=== PATIENT | female | born 1925 | race Caucasian/White ===

== ENCOUNTER 2017-01-06 10:44 | Inpatient (IN) | payer MEDICARE, OTHER ==
[~2017-01-06] VITALS: Ht 162.6 cm; Wt 68.7 kg
[2017-01-06 12:01] VITALS: BP 152/89; PULSE 69; RESP 16; O2SAT 98
[2017-01-06 12:51] VITALS: PULSE 75
[2017-01-06] MEDS ORDERED: Ondansetron 2 mg/mL 2 mL Inj IVPUSH PRN (13:00)
[2017-01-06] MEDS ORDERED: Atropine 1 mg/10 mL (Code) Syringe IVPUSH PRN (13:00)
[2017-01-06] MEDS ORDERED: Senna-Docusate 8.6-50 mg Tablet PO PRN (13:00)
[2017-01-06] MEDS ORDERED: Polyethylene Glycol (PEG) 17 Gm Powder PO PRN (13:00)
[2017-01-06] MEDS ORDERED: Alum-Mag Hydrox-Simeth 30 mL Suspension PO PRN (13:00)
--- NOTE | 2017-01-06 13:20 | NUR ---
No allergy per patient. Addendum: 01/06/17 at 1321 by NADINE ASH RN Amended: Links added.
[2017-01-06] MEDS ORDERED: WARF2.5T82 PO (13:33)
[2017-01-06] MEDS ORDERED: DORZ10DR18 LEFT_EAR (13:33)
[2017-01-06] MEDS ORDERED: OFLO5DRO5 RIGHT_EYE (13:33)
[2017-01-06] MEDS ORDERED: SIMV20TA4 PO (13:33)
[2017-01-06] MEDS ORDERED: LATA2.5D6 LEFT_EYE (13:33)
[2017-01-06] MEDS ORDERED: BRIM5DRO10 LEFT_EYE (13:33)
[2017-01-06] MEDS ORDERED: ATEN25TA PO (13:33)
[2017-01-06] MEDS: 0.9% Sodium Chloride 1,000 ML IV SCH (14:22)
[2017-01-06] MEDS: Dorzolamide 2% 10 mL Ophthalmic Solution LEFT_EYE SCH ×2 (14:30→21:11)
[2017-01-06] MEDS: BRIMONIDINE 0.15% LEFT_EYE SCH ×2 (14:30→21:11)
--- NOTE | 2017-01-06 15:09 | HP ---
[address] [address] HISTORY AND PHYSICAL PATIENT: PANCHO KEANE : 1925 MR#: [id number] ADMIT: 01/06/2017 JOB ID: [id number] PRIMARY CARE PROVIDER: Dr. Ro, [place]. Patient is direct admission from [facility], inpatient status, Blue Team. CHIEF COMPLAINT: Chest pain. HISTORY OF PRESENT ILLNESS: This is an 89-year-old female with no known cardiac disease but a history of a carotid endarterectomy and hypertension, who woke up 3:00 in the morning due to substernal chest pain which was pressure like, nonradiating. She has never had this before. Had been feeling fine otherwise. There was no nausea, vomiting, diaphoresis, shortness of breath or lightheadedness. The pain was substernal, pressure-like and not particularly radiating. She laid in bed 15 minutes with this. It did not get better. She went downstairs, called 911. Paramedics came, I think put her on some O2, but she said did not give her any meds, and by the time she got to the ER, which was pretty quickly, pain was gone. In the ER, troponin was 0.74. It has come down to 0.44. INR 2.8. Chest x-ray showed cardiomegaly but no failure. Mild anemia and unremarkable BMP. Her EKG showed some PVCs, PACs but no overt ischemic changes. Patient is chest pain free at this point in time. REVIEW OF SYSTEMS: A complete review of systems completed and performed with patient, all pertinent positives in HPI as above, rest review of systems negative. PAST MEDICAL HISTORY: 1. CVA six years ago. 2. Hypertension. 3. for cataracts. 4. Carotid endarterectomy on the right. 5. Glaucoma and eye surgery on with a stent on the right eye. MEDICATIONS: 1. Warfarin 2.5 mg in the morning, the patient says she takes this to prevent strokes per her doctor, but there is no known history of AFib. 2. Atenolol 25 daily. 3. Simvastatin 20 at bedtime. 4. Brimonidine 0.15% one drop left eye t.i.d. 5. Difluprednate 2% one drop right eye t.i.d. 6. Latanoprost one drop left eye daily. 7. Ofloxacin 0.03% one drop right eye q.i.d. 8. Dorzolamide 2% one drop t.i.d. left eye. ALLERGIES: None. SOCIAL HISTORY: Patient lives alone in her own home. She quit smoking at age 30 and has two alcohol beverages every night. FAMILY HISTORY: Father at 90 suddenly and mother had a stroke at 85 and at 90. No other cardiovascular disease evident. PHYSICAL EXAMINATION: Afebrile, heart rate 70, respiratory rate 16, blood pressure 150/89. O2 sats 98% on room air. Patient is alert, cooperative, not in any distress. She is chest pain free. Skin is warm and dry. Eyes: PERRLA. EOM intact. Mouth shows adequate hydration, no lesions. Neck supple. No JVD. Thyroid grossly normal. Her cardiac exam is regular. Possible soft systolic murmur. Lungs are clear anteriorly and posteriorly. Abdomen is soft, nonacute, benign. Extremities showed no significant edema. Cranial nerves 2-12 are intact. No gross motor or sensory defects noted. DIAGNOSES: 1. Cal-PU-mzqtvcina myocardial infarction, present on admission. Active. I have talked to Dr. King, who had also spoken with the Emergency Department physician at [facility]. At this time, as patient has a therapeutic international normalized ratio, he does not want heparin but we could consider that if her international normalized ratio drifts to less than 2. He will see her in consultation. He asked me initiate aspirin and Plavix. We will substitute metoprolol for patient's atenolol and continue her nighttime simvastatin. Echocardiogram ordered and possible catheterization. 2. Warfarin usage present on admission, active. Will monitor the pro-time on a daily basis. Will hold warfarin at this time, nothing an international normalized ratio of 2.8. Would try to establish a better reason for warfarin therapy. 3. Hypertension present on admission. Stable. Will continue patient's atenolol. 4. Glaucoma with recent surgery, right eye, present on admission. Active. Will continue with patient's five eye drops. She has them here in the hospital and she can use her own if we do not have them currently in our pharmacy. CODE STATUS: Patient requests DNR, DNI status.
[2017-01-06] MEDS ORDERED: DIFL5DRO RIGHT_EYE (15:11)
[2017-01-06 15:15] LABS: Magnesium 1.5 mg/dL (1.6-2.6)
--- NOTE | 2017-01-06 16:19 | DRSVH ---
Merged With [facility] [address] [place] [address] Echocardiogram Report Name: PANCHO KEANE LStudy Date: 01/06/2017 Height: 64 in Hospital Exam Location: [facility] Weight: 150 lb Gender: Female BSA: 1.7 m2 : 1925 Age: 89 yrs BP: 152/89 mmHg Reason For Study: Chest pain Ordering Physician: Performed By: Amanda LoeraMcPherson HospitalIST [facility] Interpretation Summary The left ventricle is normal in size. Left ventricular systolic function is moderately reduced. The ejection fraction is estimated to be 40-45%. There is a large sized apical, septal, anteroseptal, and anterior wall motion abnormality with hypokinesis to akinesis of the segments. The right ventricle is normal in size and function. The right ventricular systolic pressure is estimated at 45 mmHg assuming a right atrial pressure of 3 mm Hg. The left atrium grossly appears normal in size. Right atrial size is normal. The aortic valve is moderately calcified. There is no hemodynamically significant valvular aortic stenosis. There is no other significant valvular heart disease. The ascending aorta is mildly enlarged. Mildly dilated abdominal aorta. There is a small pericardial effusion noted. There are no echocardiographic indications of cardiac tamponade. Procedure: A two-dimensional transthoracic echocardiogram with color flow and Doppler was performed. The study quality was technically adequate. There is no prior echocardiogram noted for this patient. The heart rate ranged between 71-79 bpm during the study. Left Ventricle: The left ventricle is normal in size. There is normal left ventricular wall thickness. Left ventricular systolic function is moderately reduced. The ejection fraction is estimated to be 40-45%. There is a large sized apical, septal, anteroseptal, and anterior wall motion abnormality with hypokinesis to akinesis of the segments. Spectral Doppler of the mitral valve is reversed, with an E/A wave ratio < 1.0. Right Ventricle: The right ventricle is normal in size and function. Atria: The left atrium grossly appears normal in size. Right atrial size is normal. The interatrial septum is intact with no evidence for an atrial septal defect. Mitral Valve: The mitral valve leaflets are mildly calcified. The mitral valve leaflets appear moderately thickened, but open well. There is mild mitral regurgitation. Aortic Valve: The aortic valve is not well visualized. There is mild aortic valve sclerosis. The aortic valve is moderately calcified. Leaflet mobility is moderately reduced. There is no hemodynamically significant valvular aortic stenosis. Tricuspid Valve: The tricuspid valve leaflets are thin and pliable. There is mild tricuspid regurgitation. The right ventricular systolic pressure is estimated at 45 mmHg assuming a right atrial pressure of 3 mm Hg. Pulmonic Valve: The pulmonic valve is not well visualized. There is trace pulmonic regurgitation. There is no other significant valvular heart disease. Great Vessels: The aortic root is normal size. The ascending aorta is mildly enlarged. The aortic arch is normal in size. Mildly dilated abdominal aorta. The IVC is of normal diameter and collapses greater than 50% with a sniff. This suggests a low right atrial pressure of 3 mm Hg. Pericardium/ Pleura There is a small pericardial effusion noted. There are no echocardiographic indications of cardiac tamponade. There is no pleural effusion. I WMSI = 1.94 % Normal = 44 There is a la rge sized apical, septal, anteroseptal, and anterior wall motion abnormality w ith hypokinesis to akinesis of t he segments. Segments Size X - Cannot 1 - Normal 2 - 3 - Akinetic 4 - 1-2 small Interpret Hypokinetic Dyskinetic 3-5 moder ate 5 - 6-14 large Aneurysmal 15-16 diffu se MMode/2D Measurements & Calculations LVIDd: 5.5 cm LA dimension: 3.9 cm RA long axis Ao root diam LVIDs: 4.8 cm IVC diam: 1.9 cm FS: 11.8 % RA area Aortic Jxn: 2.8 cm IVSd: 1.1 cm : 15.1 cm asc Aorta Diam LVPWd: 0.82 cm RA vol : 43.1 ml Ao Arch Diam (Prox RA Trans): 2.8 cm : 24.9 mm/ RVDd major : 5.7 cm LV rojo. diameter/BSA LV sys. diameter/BSA RVD1 (basal) RVD2 (mid): 3.3 cm (cm/m^2): 3.2 (cm/m^2): 2.8 Doppler Measurements & Calculations Ao V2 max MV E max efra MV E/A: 0.89 TR max efra : 147.4 cm/sec : 81.0 cm/sec MV A dur : 324.8 cm/sec Ao max P.7 mmHgMV A max efra : 0.12 sec TR max PG Ao mean PG : 91.2 cm/sec : 42.2 mmHg MV P1/2t: 65.9 msec PA V2 max LVOT Max Efra : 95.3 cm/sec : 85.1 cm/sec PA mean PG sev ratio: 0.61 PA Accel Time : 0.11 sec MV dec time MV P1/2t max efra Ao V2 mean LV V1 max PG : 0.20 sec : 92.7 cm/sec Ao V2 VTI LV V1 VTI: 18.4 cm MVA(P1/2t): 3.3 cm2 : 30.2 cm PA V2 mean : 56.7 cm/sec Reading Physician:PURNIMA
[2017-01-06] MEDS: Sodium Chloride LOK Flush 10 mL Syringe IVFLUSH SCH (16:30)
[2017-01-06 16:54] VITALS: BP 115/74; PULSE 71; RESP 18; O2SAT 97
--- NOTE | 2017-01-06 18:18 | NUR ---
Admission Patient directly admitted to the floor at 1200 from [facility]. Admission questions and med req accomplished by admit nurse. Patient had a 0/10 pain. Vitals - t-36.8, bp-152/89, p-69, rr-18, o2-98 RA. Oriented patient to the room. Placed bed in lowest position and call light within reach.
--- NOTE | 2017-01-06 18:36 | NUR ---
[facility] signed
[2017-01-06] MEDS ORDERED: Phytonadione (Vitamin K) per Pharmacy XX ONE (19:45)
[2017-01-06 20:00] VITALS: PULSE 77
[2017-01-06] MEDS ORDERED: Phytonadione (Adult) 10 mg/1 mL Inj PO ONE (20:30)
--- NOTE | 2017-01-06 20:30 | PCM.CHPCAR ---
Consult Subjective Date of service Jan 06, 2017 Date of admit Jan 06, 2017 at 11:56 Provider Requesting Consult Requesting Provider: Ed Johnston MD Primary Care Physician Primary Care Provider: Cece Ro MD Chief Complaint Chest pain History of Present Illness This is a very pleasant and very active 89-year-old female. She has no prior cardiac history but does have vascular disease which involves the carotid endarterectomy on the right side after she suffered a CVA. She was placed on warfarin at that point of time. The patient has done very well. She has been quite active. She lives by herself in [facility]. She exercises on a regular basis which involves water aerobics and walking. She denies any symptoms during these activities. However earlier this morning around 5:00 the patient has sudden onset of chest pain that started very classic for angina. It was retrosternal and pressure-like sensation without radiation. She also had mild tachycardia. The patient waited for about 10-15 minutes but the sensation did not resolve spontaneously. She went upstairs and put her clothes on and open the door and called 911. The patient was taken to [facility] emergency room. Her first EKG was unremarkable. Her first troponin was negative. She was eventually chest pain-free at this point. She was going to be admitted to the hospitalist service but her second troponin came back positive. The patient was transferred to [facility] for considering cardiac catheterization. The patient has been hemodynamically and symptomatically stable. Her INR was above 2. The patient recently had glaucoma surgery just 2 days ago. She was on warfarin during the procedure. The patient had an echocardiogram that shows significant LV wall motion abnormalities along the LAD distribution. There is significant hypokinesis to akinesis. She had no evidence of significant valvular heart disease. Her ejection fraction was estimated around 40-45%. Otherwise she has done very well and has no other complaints. Review of Systems Review of Systems The rest of the 12 point review symptoms is otherwise negative apart what was mentioned in the history of present illness. PMH Past Medical History 1. CVA six years ago. 2. Hypertension. 3. for cataracts. 4. Carotid endarterectomy on the right. 5. Glaucoma and eye surgery on with a stent on the right eye. Scheduled Atenolol (Atenolol) 25 Mg Tablet 25 MG PO DAILY (Reported) Brimonidine Tartrate (Alphagan P) 5 Ml Drops 1 DROP LEFT_EYE TID (Reported) Difluprednate (Durezol) 5 Ml Drops 1 DROP RIGHT_EYE QID (Reported) Dorzolamide (Dorzolamide) 10 Ml Drops 1 DROP LEFT_EAR TID (Reported) Latanoprost (Latanoprost) 2.5 Ml Drops 1 DROP LEFT_EYE HS (Reported) Ofloxacin (Ofloxacin) 5 Ml Drops 1 DROP RIGHT_EYE QID (Reported) Simvastatin (Simvastatin) 20 Mg Tablet 20 MG PO HS (Reported) Warfarin Sodium (Warfarin Sodium) 2.5 Mg Tablet 2.5 MG PO DAILYWD (Reported) Current Inpatient Medications Home medications 1. Warfarin 2.5 mg in the morning, the patient says she takes this to prevent strokes per her doctor, but there is no known history of AFib. 2. Atenolol 25 daily. 3. Simvastatin 20 at bedtime. 4. Brimonidine 0.15% one drop left eye t.i.d. 5. Difluprednate 2% one drop right eye t.i.d. 6. Latanoprost one drop left eye daily. 7. Ofloxacin 0.03% one drop right eye q.i.d. 8. Dorzolamide 2% one drop t.i.d. left eye. Allergies: Coded Allergies: No Known Allergies (Unverified , 01/06/17) Family History Family History Father at 90 suddenly and mother had a stroke at 85 and at 90. No other cardiovascular disease evident Social History Hx Alcohol Use: YesAlcoholic Drinks Per Day: 3 ouces per dayHx Substance Use: No Living Arrangement: Alone Exam Vital Signs Vital Sign - Last Date Time Temp Pulse Resp B/P Pulse Ox O2 Delivery O2 Flow Rate FiO2 01/06/17 16:54 36.8 71 18 115/74 97 Room Air Objective GENERAL: This is a well-nourished, well-developed patient, in no apparent distress. HEAD: Atraumatic. Normocephalic. No temporal or scalp tenderness. EYES: Pupils equal round and reactive. Extraocular motions intact. No scleral icterus. No injection or drainage. ENT: Nose without bleeding, purulent drainage or septal hematoma. Throat without erythema, tonsillar hypertrophy or exudate. Uvula midline. Airway patent. NECK: Trachea midline. No JVD or lymphadenopathy. Supple, nontender, no meningeal signs. CARDIOVASCULAR: Regular rate and rhythm without murmurs, gallops, or rubs. RESPIRATORY: Clear to auscultation. Breath sounds equal bilaterally. No wheezes , rales, or rhonchi. GASTROINTESTINAL: Abdomen soft, non-tender, nondistended. No hepato-splenomegaly , or palpable masses. No guarding. EXTREMITIES: No clubbing, cyanosis, or edema. No joint tenderness, effusion, or edema noted. No calf tenderness. Negative Homans sign bilaterally. BACK: Nontender without deformity or crepitance. No flank tenderness. Lab and Diagnostics Additional Diagnostics: Echocardiogram Report Name: PANCHO KEANE LStudy Date: 01/06/2017 Height: 64 in Hospital Exam Location: [facility] Weight: 150 lb Gender: Female BSA: 1.7 m2 : 1925 Age: 89 yrs BP: 152/89 mmHg Reason For Study: Chest pain Ordering Physician: Performed By: Amanda Lo[facility]Jeff[facility] Center[facility] Interpretation Summary The left ventricle is normal in size. Left ventricular systolic function is moderately reduced. The ejection fraction is estimated to be 40-45%. There is a large sized apical, septal, anteroseptal, and anterior wall motion abnormality with hypokinesis to akinesis of the segments. The right ventricle is normal in size and function. The right ventricular systolic pressure is estimated at 45 mmHg assuming a right atrial pressure of 3 mm Hg. The left atrium grossly appears normal in size. Right atrial size is normal. The aortic valve is moderately calcified. There is no hemodynamically significant valvular aortic stenosis. There is no other significant valvular heart disease. The ascending aorta is mildly enlarged. Mildly dilated abdominal aorta. There is a small pericardial effusion noted. There are no echocardiographic indications of cardiac tamponade. Assessment & Plan Problems: (1) Non-ST elevation myocardial infarction (NSTEMI) Plan: Patient presents with non-ST elevation myocardial infarction. Acrochordon show significant LV wall motion abnormalities consistent with acute ischemia given the context of her history. The patient will be loaded on Plavix 300 mg 1 and for now she will start on aspirin. Her warfarin will be reversed with oral vitamin K for preparation of heart catheterization. If her INR drops below 2 then we will start intravenous heparin. She will be Nothing by mouth past midnight in preparation for the procedure. The patient has been started on beta blockers and atorvastatin as well. Currently she is stable. The patient was explained about the risk and the benefits of the cardiac catheterization and wishes to proceed. Status: Acute ICD Code: I21.4 (2) Warfarin anticoagulation Plan: I do not know why she is taking warfarin. She has no prior hx of afib as far as we can tell. I think we can discontinue this and put her on aspirin and Plavix if she does proceed with coronary stenting. Dual antiplatelet therapy should be suffice and secondary prevention of CVA. Status: Chronic ICD Code: Z79.01 (3) S/P carotid endarterectomy Status: Chronic ICD Code: Z98.89 (4) Hypertension Qualifiers: Hypertension type: essential hypertension Hypertension goal: less than 130 /80 Qualified Code: I10 - Essential (primary) hypertension Plan: Blood pressure appears to be pretty well-controlled since admission. Continue with current medical therapy. Status: Chronic ICD Code: I10 (5) H/O polymyalgia rheumatica Status: Chronic ICD Code: Z87.39 Cardiology Plan: Catherization Pain Evaluation: Adequate Pain Control VTE Mechanical Devices: Intermittant Pneumatic CD Resuscitation Status: DNR/DNI:Do Not Resuscitate/Intubate Time spent 80 minutes Phillip King MD Jan 06, 2017 20:30
[2017-01-06 20:46] VITALS: BP 158/94; PULSE 83; RESP 18; O2SAT 98
[2017-01-06] MEDS: DUREZOL OPTH RIGHT_EYE SCH (21:09)
[2017-01-07] VITALS (25 sets, daily range): BP systolic 99–147; BP diastolic 54–88; PULSE 58–82; RESP 15–19; O2SAT 95–99
[2017-01-07] MEDS: Sodium Chloride LOK Flush 10 mL Syringe IVFLUSH SCH ×8 (00:30→19:47)
[2017-01-07] MEDS ORDERED: Magnesium Sulfate 50% Inj 1 GM in Dextrose 5% 50 ML IV ONE (02:00)
[2017-01-07] MEDS: 0.9% Sodium Chloride 1,000 ML IV SCH ×2 (02:15→17:20)
--- NOTE | 2017-01-07 05:28 | NUR ---
Teaching/NOC shift Controls Technician received the patient at 1900hrs, she was lying quietly in bed only complaining of mild pain in the RT eye, she had surgery in that eye with a stent place on . Assessment done and teaching re: possible heart cath done. Patient admits to being very tired and just wants to sleep, writer editor explained need for 2nd IV site and cath pre-op but she request to do it in the AM. PT left to rest until HS meds given, after that she slept soundly all night, no complaint of chest pain or SOB on rounds tonight.
[2017-01-07 05:55] LABS: Mean Corpuscular Volume 88.4 fL (81-100)
[2017-01-07 05:58] LABS: BASOPHILS % (AUTO) 0.5 % (0-3); EOSINOPHILS % (AUTO) 5.5 % (0-5); Mean Corpuscular Hemoglobin 27.8 pg (27.0-35.0); NEUTROPHILS % (AUTO) 70.1 % (40-74); Platelet Count 153 bil/L (150-400)
[2017-01-07] MEDS ORDERED: diphenhydrAMINE 25 mg Capsule PO ONE (06:00)
[2017-01-07] MEDS ORDERED: 0.9% Sodium Chloride 1,000 ML IV ONE (06:00)
[2017-01-07 06:14] LABS: INR 1.37 ratio
[2017-01-07 06:17] LABS: Magnesium 1.8 mg/dL (1.6-2.6)
[2017-01-07] MEDS ORDERED: Heparin 5,000 Unit/mL Inj IVPUSH PRN (08:15)
[2017-01-07] MEDS ORDERED: Heparin 25K Unit/500mL 0.45 NS 25,000 UNIT in IV Premix 1 EACH IV SCH (08:15)
[2017-01-07] MEDS: DUREZOL OPTH RIGHT_EYE SCH ×4 (08:42→19:47)
[2017-01-07] MEDS: Dorzolamide 2% 10 mL Ophthalmic Solution LEFT_EYE SCH ×3 (08:43→19:46)
[2017-01-07] MEDS: BRIMONIDINE 0.15% LEFT_EYE SCH ×3 (08:45→19:46)
[2017-01-07] MEDS ORDERED: 0.9% Sodium Chloride 1,000 ML ONE (09:03)
[2017-01-07] MEDS ORDERED: Heparin 1,000 Units/500 mL NS Premix IV ONE (09:03)
[2017-01-07] MEDS ORDERED: Heparin 5,000 Units/500 mL NS Premix IV ONE ×2 (09:03→10:37)
--- NOTE | 2017-01-07 09:20 | NUR ---
Off the unit Pt taken off the unit to curb and gutter laborer, unable to establish 2nd IV. Pt given 0.5 mg IV Ativan and 25 mg PO Diphendydramine prior to leaving. Undergarments have been removed. No complains of pain, chest discomfrt/pressure. Per henrik Walker to hold Heparin gtt at this time. Report called to Nayeli.
[2017-01-07] MEDS ORDERED: Nitroglycerin 50,000 mcg/250 mL D5W Premix IV ONE (09:23)
[2017-01-07] MEDS ORDERED: Heparin 1,000 Unit/mL 10 mL Inj ONE (09:23)
[2017-01-07] MEDS ORDERED: fentaNYL-PF 50 mCg/mL 2 mL Inj ONE (09:46)
[2017-01-07 09:57] LABS: Unsaturated Iron Binding 344.1 ug/dL
[2017-01-07] MEDS ORDERED: 0.9% Sodium Chloride 1,000 ML IV SCH (11:43)
[2017-01-07] MEDS ORDERED: HYDROcodone-APAP 5-325 mg Tablet PO PRN (11:45)
[2017-01-07] MEDS ORDERED: Atropine 1 mg/10 mL (Code) Syringe IVPUSH PRN (11:45)
[2017-01-07] MEDS ORDERED: Ondansetron 2 mg/mL 2 mL Inj IVPUSH PRN (11:45)
--- NOTE | 2017-01-07 11:53 | PCM.PNCARD ---
Subjective Date of service Jan 07, 2017 Chief Complaint Chest pain History of Present Illness Patient had her heart chatheterization today and that showed a 99% proximal LAD stenosis. She proceeded with drug eluting stent and subsequent angiographic results were excellent. The rest of her coronaries showed no evidence of significant CAD. She has been transferred to [facility] in stable condition. Constitutional: Denies: Chills, Fever ENT: Denies: Ear Discharge, Ear Pain Eyes: Resports: Conjunctive Inflammation, Denies: Blurred Vision Cardiovascular: Denies: Chest Pain, Edema, Irregular Heart Rate Respiratory: Denies: Cough, Cough with bloody sputum Gastrointestinal: Denies: Abdominal Pain, Blood in stool (red) Genitourinary: Denies: No burning or pain with urination Musculoskeletal: Denies: Ankle Pain, Back Pain Skin: Denies: Blisters, Bruising Neurological: Denies: Confusion, Dizziness Endocrine: Reports: Blood Glucose Review Exam Vital Signs Vital Sign - Last Date Time Temp Pulse Resp B/P Pulse Ox O2 Delivery O2 Flow Rate FiO2 01/07/17 10:43 67 01/07/17 08:30 Supplement Oxygen 01/07/17 05:20 36.6 16 141/88 98 Intake and Output 01/06/17 01/06/17 01/07/17 Cumulative From/Thru 15:00 23:00 07:00 01/06/17 12:00 - 01/07/17 07:00 Intake Total 1420 ml 1420 ml Output Total 650 ml 650 ml Balance 770 ml 770 ml Intake Oral 200 ml 200 ml IV Total 1220 ml 1220 ml Output Urine Total 650 ml 650 ml # Bowel Movements 0 0 General: Pleasant Cooperative Skin: Warm & dry to touch Head: Normocephalic Eye: EOMS intact No arcus or xanthelasma Ears, Nose & Throat: Ears no gross abnormalities Nose no gross abnormalities Chest: Clear auscultation w/o rales/wheeze Cardiac: Normal non-displaced apical impulse Pulses: Pulses full/equal all extremities Abdomen: Soft, non-distended, non-tender Extremities: Warm w/o deformities,erythema noted Neurological: Alert & oriented Psychological: Affect & interaction appropriate Lab and Diagnostics Result Diagram: 01/07/1753901/07/17539 Assessment & Plan Problems: (1) Non-ST elevation myocardial infarction (NSTEMI) Plan: S/P IVETT to proximal LAD. Continue with metoprolol 12.5-25 mg BID, Plavix 75 mg once a day, Atorvastatin 40 mg po qhs, and ASA 81 mg once a day. -If stable tomorrow then she may be discharged home and follow up with me in 1 month. Please send Rx's to local pharmacy and then I will start sending them to mail order pharmacy. Please give patient at least 2 months supply. -Lisinopril 10 mg once a day start tomorrow. Reasons: ischemic cardiomyopathy and HTN. Status: Acute ICD Code: I21.4 (2) Warfarin anticoagulation Plan: I do not know why she is taking warfarin. She has no prior hx of afib as far as we can tell. I think we can discontinue this and put her on aspirin and Plavix if she does proceed with coronary stenting. Dual antiplatelet therapy should be suffice and secondary prevention of CVA. Status: Chronic ICD Code: Z79.01 (3) S/P carotid endarterectomy Status: Chronic ICD Code: Z98.89 (4) Hypertension Qualifiers: Hypertension type: essential hypertension Hypertension goal: less than 130 /80 Qualified Code: I10 - Essential (primary) hypertension Plan: I will like to start her on LIsinopril 10 mg once a day starting tomorrow. HTN not well controlled. Status: Chronic ICD Code: I10 (5) H/O polymyalgia rheumatica Status: Chronic ICD Code: Z87.39 Cardiology Plan: Catherization Pain Evaluation: Adequate Pain Control VTE Mechanical Devices: Intermittant Pneumatic CD Resuscitation Status: DNR/DNI:Do Not Resuscitate/Intubate Time spent 20 minutes Phillip King MD Jan 07, 2017 11:52
[2017-01-07] MEDS ORDERED: 0.9% Sodium Chloride 250 ML ONE (12:03)
--- NOTE | 2017-01-07 13:01 | PCM.CVCATH ---
Cardiac Cath Report Date of Service Jan 07, 2017 Primary Indication This is 89-year-old female who presents to [facility] for non-ST elevation myocardial infarction and also has significant LV wall motion abnormalities consistent with LAD infarct/ischemia. Procedure 1. Left heart catheterization 2. Selective coronary angiogram 3. Right femoral angiogram Procedure Details The patient was brought into the catheterization laboratory. The patient was nothing by mouth since midnight. The patient was prepped and sterilized in the appropriate fashion. Local anesthetic was given to the right groin region with lidocaine 1%. A percutaneous stick to the right groin region with an 18-gauge Seldinger needle was attempted. A 6 Gambian sheath was inserted into the right femoral artery. A 6 Gambian FL 4 diagnostic catheter was advanced and engaged into the left main. The left coronary angiography was performed in multiple views. The catheter was exchanged over the wire for a 6 Gambian FR4 diagnostic catheter. The catheter was engaged in the right coronary ostium and the right coronary angiography was performed in multiple views. The catheter was removed over the wire and exchanged for 6 Gambian angle pigtail catheter. LV hemodynamics were recorded. LV pullback was performed. All catheters were removed. The right femoral angiogram was performed to evaluate for closure device. Case was handed over to Dr. Copeland for urgent PCI of the proximal LAD. Hemostasis was obtained with Perclose. The patient was transferred back to special observation unit for post procedural monitoring. There were no immediate complications. Total fluoroscopy time: 16.1 minutes Total fluoroscopy dosage: 1259 mGy Estimated blood loss: 35 mL Total contrast: 275 mL Findings 1. Hemodynamics: The left ventricular systolic pressure was estimated at 145 mmHg and the left ventricular end-diastolic pressure was estimated at 23 mmHg. There is no significant gradient during pullback. 2. Selective coronary angiography: A. Left main: There artery has no evidence of significant disease. It trifurcates into the left anterior, ramus intermedius and left circumflex arteries. B. Left anterior descending artery: There is a 99% eccentric stenosis in the proximal LAD. Beyond this there is no evidence of significant disease. C. Left circumflex artery: This is a non-dominant artery. There is no evidence of significant disease. D. Right coronary artery: This is a dominant artery. There is no evidence of significant disease. E. Ramus intermedius: There is no evidence of significant disease. 3. Right femoral angiogram: There is small plaque noted at the insertion of the sheath. Summary 1. Proximal critical LAD stenosis. 2. Increased left ventricular end-diastolic pressures. Recommendations The patient proceeded with urgent PCI of the proximal LAD. One drug-eluting stent was inserted and subsequent angiographic results were satisfactory. The patient will need to stay 1 more night and possibly can be discharged home tomorrow. She will need a follow-up with me in 1 month. Phillip King MD Jan 07, 2017 13:01
--- NOTE | 2017-01-07 13:46 | NUR ---
Social Work Attempted Initial Assessment: SW attempted to meet with patient at bedside. Patient currently off unit at this time for heart cath at this time. Patient is a 89 year old female admitted on 01/06/17 for chest pain. Patient payer as [employer] and [employer]. Patient listed PCP as MD Ro. Patient emergency contact as sister Annette, . Patient listed address as [facility]. Patient independent with needs at baseline. SW to conduct assessment upon return to unit. SW to follow. PLAN: Home via POV, pending initial assessment. Patient off unit for heart cath today Marii MO
--- NOTE | 2017-01-07 14:03 | NUR ---
Pt arrived to [facility] at 1200 with a LAD stent and perclose closure device to the right femoral artery. Noted some fullness of puncture site in the 1st 20 minutes of recovery - site was held manually and softened. at 1315 - small hematoma developed - manual pressure held by Claude V - pollution control technician. No further hematoma development noted. Dr King Cooked paged - regarding hematoma - no orders or changes at this time.
--- NOTE | 2017-01-07 14:30 | NUR ---
BR for post heart cath for 4 hours instead of 2 hours BR will be completed by 1545. NSR no ectopy.
--- NOTE | 2017-01-07 14:58 | CS94 ---
[address] [address] DIAGNOSTIC CARDIAC CATHETERIZATION PATIENT: PANCHO KEANE : 1924 MR#: [id number] ADMIT: 01/06/2017 JOB ID: [id number] PROCEDURE NOTE--CARDIAC CATHETERIZATION LABORATORY: DATE OF PROCEDURE: Saturday, January 07, 2017. GEAR TECHNICIAN: Blayne Copeladn MD. PROCEDURES: 1. PERCUTANEOUS CORONARY INTERVENTION (PCI): a. Stent of Proximal LAD--Xience 2.75 x15 mm (IVETT--drug-eluting stent) . CLINICAL DETAILS: This 89-year-old woman had presented to the cardiac Catheterization Laboratory this morning and had diagnostic coronary angiogram after she was admitted with her 1st presentation of heart disease with chest pain. Troponin al, and was elevated. ECG was nonspecific. Echo showed anterior wall motion defect. PROCEDURAL DETAILS: The patient was on the catheterization table after diagnostic angiogram. She had been previously given consent for intervention procedure. A 6-Grenadian, 10 cm side-arm sheath was in place in the right common femoral artery. She had been loaded 24 hours ago with Plavix 300 mg p.o.; and both aspirin and Plavix were given this morning. Procedural anticoagulation was obtained with bolus IV Heparin to achieve therapeutic ACT. Aliquots of NTG IC were used as needed during the procedure. PCI OF PROXIMAL LAD: The diagnostic images were reviewed. There is a subtotal 99% tubular proximal LAD lesion just after the first septal with ROMAINE-3 flow in a tortuous distal LAD. A 6-Grenadian Voda-3.5 guide was used for Intervention. The lesion was crossed with a BMW wire--0.014 inches x 190 cm--which entered the septal branch at the site of the lesion. It was left in place to help protect the patency of the small to moderate size septal branch. A 2nd similar BMW wire was advanced across the lesion without difficulty and placed in the distal LAD. PREDILATATION: Predilatation was accomplished with a Trek balloon--2.5 x 12 mm--inflated twice to 6 atmospheres. The lesion was improved. STENT: The lesion was then treated with a Xience IVETT--2.75 x 15 mm--deployed across the lesion at 16 atmospheres. POST DILATATION: There was a satisfactory angiographic result, but there was a small residual irregularity at the superior side at the site of the very eccentric bulky lesion. Therefore, the stented segment was postdilated with a noncompliant Trek NC Balloon--2.75 x 8 mm--inflated twice within the stent to 18 atmospheres. There was an excellent final angiographic result with no residual lesion, ROMAINE-3 flow, and no evident angiographic complication. Procedure without difficulty. Patient tolerated procedure well. No complications. A prior side-arm sheath angiogram shows adequate access for a closure device. Arterial hemostasis was obtained without difficulty with a Perclose suture. The patient was transferred chest-pain free and in stable condition from the Catheterization Laboratory to the [facility] Unit for ongoing care including by Cardiology, and the admitting Hospitalist Service. I discussed the procedure, findings, and management recommendations with the Patient and with Cardiology. FINDINGS: 1. PCI--Xience IVETT--2.75 x 15 mm--deployed in proximal LAD culprit lesion; and postdilated at high pressure. 2. Coronary artery disease (CAD)--Single-Vessel CAD with proximal LAD lesion that is culprit for her NSTEMI presentation. RECOMMENDATIONS: 1. ECASA--Indefinitely. 2. Plavix--Plan one year if well tolerated, including ongoing Cardiology follow-up. I discussed with the patient the critical importance of mandatory dual-antiplatelet therapy; and not to stop Plavix for any reason without immediate Cardiology consultation. 3. Ongoing care and follow-up, including guideline-directed optimal medical therapy. [facility]
--- NOTE | 2017-01-07 15:31 | PCM.PNMED ---
Subjective Date of Service Jan 07, 2017 Subjective Patient remained stable overnight. Underwent cath today, per nurse recovering patient a stent was deployed to the LAD. No problems during procedure. Patient resting comfortable after procedure, no pain, no problems or complaints. Exam Vital Signs Vital Sign - Last Date Time Temp Pulse Resp B/P Pulse Ox O2 Delivery O2 Flow Rate FiO2 01/07/17 15:00 82 18 147/81 Room Air 01/07/17 14:15 98 01/07/17 05:20 36.6 Intake and Output 01/06/17 01/06/17 01/07/17 Cumulative From/Thru 15:00 23:00 07:00 01/06/17 12:00 - 01/07/17 07:00 Intake Total 1420 ml 1420 ml Output Total 650 ml 650 ml Balance 770 ml 770 ml Intake Oral 200 ml 200 ml IV Total 1220 ml 1220 ml Output Urine Total 650 ml 650 ml # Bowel Movements 0 0 Exam eyes; ronda eom intact enmt; mouth clear, no JVD cv; S1S2 present, no sig murmur resp; clear anteriorly to auscultation gi; soft, benign, non-tender skin; no rashes neuro; cn 2-12 intact, no gross motor or sensory defects Lab and Diagnostics Result Diagram: 01/07/17 0540 01/07/17 0540 Assessment & Plan 1. Ukx-UG-eudlazfhk myocardial infarction, present on admission, active -cardiac cath with stent to LAD 01-07-16, will follow with cardiology -lipitor 40, asa 81, plavix 75, metoprolol 12.5 tid 2. history of paroxysmal atrial flutte, present on admission, stable -office note 10-02-16, pcp Dr. Ro, patient has history of a-flutter, ie reason for Coumadin -resume Coumadin when OK with cardiology -metoprolol 12.5 q 8 hours 3. Hypertension present on admission. Stable. -continue lisinopril 10, metoprolol 12.5 tid 4. Glaucoma with recent surgery, right eye, present on admission, stable -Will continue with patient's five eye drops. She has them here in the hospital and she can use her own if we do not have them currently in our pharmacy. VTE Mechanical Devices: Intermittant Pneumatic CD Resuscitation Status: DNR/DNI:Do Not Resuscitate/Intubate Spielmann, D Perico MD Jan 07, 2017 15:30
--- NOTE | 2017-01-07 16:53 | NUR ---
Transferred patient up to room 2005 for an overnight stay post LAD stent by Dr Copeland. Dr Copeland has assessed Right femoral access site for hematoma prior to transfer - no hematoma noted by Dr Copeland. Report of heart cath and heart cath recovery given to Priscila EDWARD for room 2004 - Patient transferred by bed back to her room. Right femoral puncture site is has no hematoma edge/patient states, "it feels a bit bruised, but no pain".
[2017-01-08 02:58] VITALS: BP 113/70; PULSE 81; RESP 18; O2SAT 97
[2017-01-08 03:07] LABS: BASOPHILS % (AUTO) 0.5 % (0-3); EOSINOPHILS % (AUTO) 4.2 % (0-5); MONOCYTES % (AUTO) 10.6 % (4-12); Mean Corpuscular Hemoglobin 27.8 pg (27.0-35.0); Mean Corpuscular Volume 88.2 fL (81-100); NEUTROPHILS % (AUTO) 73.5 % (40-74); Platelet Count 135 bil/L (150-400)
[2017-01-08 03:22] LABS: INR 1.09 ratio
[2017-01-08] MEDS: 0.9% Sodium Chloride 1,000 ML IV SCH (05:09)
--- NOTE | 2017-01-08 06:45 | NUR ---
Cardiac Denies CP throughout. VSS. Right groin site without apparent complications. Up to BR and tolerated well.
[2017-01-08] MEDS: DUREZOL OPTH RIGHT_EYE SCH ×2 (07:23→12:01)
[2017-01-08] MEDS: Dorzolamide 2% 10 mL Ophthalmic Solution LEFT_EYE SCH ×2 (07:23→12:03)
[2017-01-08] MEDS: BRIMONIDINE 0.15% LEFT_EYE SCH ×2 (07:24→12:02)
[2017-01-08 07:39] VITALS: BP 129/79; PULSE 85; RESP 16; O2SAT 98
[2017-01-08] MEDS: Sodium Chloride LOK Flush 10 mL Syringe IVFLUSH SCH ×2 (07:43→07:44)
[2017-01-08 11:57] VITALS: BP 116/71; PULSE 77; RESP 18; O2SAT 97
[2017-01-08 12:14] VITALS: PULSE 89
--- NOTE | 2017-01-08 12:36 | PCM.DICHF ---
NIC GALVAN DO 01/08/17 1216: CHF Discharge Instructions Date of Service: Jan 08, 2017 Dates of Hospitalization Date of Hospital Admission Jan 06, 2017 at 11:56 Date of Discharge: Jan 08, 2017 Providers Admitting Physician: Ed Johnston MD Primary Care Physician: Cece Ro MD Attending Physician: Ed Johnston MD Diagnosis at Time of Discharge Diagnosis at time of discharge 1. Kqo-YI-clqixszqi myocardial infarction, present on admission, Stable. 2. history of paroxysmal atrial flutte, present on admission, stable 3. Hypertension present on admission. Stable. 4. Glaucoma with recent surgery, right eye, present on admission, stable 5. Acute Heart Failure with reduced ejection fraction. present on admission. Stable. 6. Cardiac catheterization with drug eluding Stent in the LAD. POD 1. Stable. Problems: Labs Ejection Fraction Laboratory Tests Test Range/Units 01/06/17 14:22 01/07/17 05:40 01/07/17 17:15 01/08/17 03:00 Total Creatine Kinase 21-215 U/L 192 Creatine Kinase MB 0.0-5.3 ng/mL 14.8 Creatine Kinase MB % 0.0-5.0 % 7.7 Pro-B-Type Natriuretic Peptide 0-738 pg/mL 3034 Thyroid Stimulating Hormone (TSH) 0.450-4.500 uIU/mL 2.470 Magnesium Level 1.6-2.6 mg/dL 1.8 Iron Level 35-150 ug/dL 58 Total Iron Binding Capacity 250-450 ug/dL 402 Percent Iron Saturation 15-50 %sat 14 Unsaturated Iron Binding ug/dL 344.1 Triglycerides Level 0-149 mg/dL 190 Cholesterol Level 100-199 mg/dL 184 LDL Cholesterol, Calculated 0-99 mg/dL 90.000 VLDL Cholesterol mg/dL 38.000 HDL Cholesterol >39 mg/dL 56 Cholesterol/HDL Ratio 0.0-4.4 3.29 Troponin T 0.0-0.011 ug/L 0.219 Sodium Level 134-144 mEq/L 138 Potassium Level 3.5-5.2 mEq/L 3.9 Chloride Level 97-108 mEq/L 105 Carbon Dioxide Level 18-29 mmol/L 22 Blood Urea Nitrogen 8-27 mg/dL 12 Creatinine 0.57-1.00 mg/dL 0.57 Estimat Glomerular Filtration Rate >59 mL/min 143 Glucose Level 60-99 mg/dL 103 Calcium Level 8.5-10.1 mg/dL 8.9 Total Bilirubin 0.0-1.2 mg/dL 0.3 Aspartate Amino Transf (AST/SGOT) 0-50 U/L 29 Alanine Aminotransferase (ALT/SGPT) 0-32 U/L 11 Alkaline Phosphatase 25-165 U/L 54 Total Protein 6.4-8.4 g/dL 5.1 Albumin 3.4-5.0 g/dL 3.2 Discharge Medications Other Medication Instructions You have received instructions on the medications your physician has prescribed at discharge. A list of these medications has been provided to you. Keep this and a list of all current medications with you. Keep the dates when you received the Flu and Pneumococcal (Pneumonia) Vaccines. Last known date of receiving Flu Vaccine july, Last known date of receiving Pneumococcal (Pneumonia) Vaccine Continue Medications: - Brimonidine tart 5ml drop TID - Difluprednate - Dorzolamide - Latanoprost - Oxfloxacin - Warafarin Stop Medications: - Atenolol 25 daily New Medications: - High Dose Simvastatin 40 mg HS - Lisinopril 10 mg - Plavix 75 mg - ASA 81 mg - Metoprolol 12.5 BID Diet Diet Instructions CHF Low Salt diet ( 2 grams or less sodium/day) Choose foods and drinks with low or no salt. Remove salt shaker from the table. Read Nutritional Facts labels. Weight Monitoring 1. Weigh yourself every day at the same time and write it down. 2. Take your weight log to your doctor visits. 3. Call your doctor if you gain 3-5 pounds over 2-3 days. 4. Your weight today is 151.46 lbs. Additional Instructions CHF Teaching Packet given and: Yes Smoking--Tobacco Use If you smoke, you are strongly encouraged to stop. If you have recently quit smoking, CONGRATULATIONS. For further information to stop smoking or to remain smoke-free, Follow Up Plan Follow Up Plan Please follow up with Dr. King in 1 months time. - Please schedule cardiac rehab, 3x per week. Dr. King's office should help with that plan. Please call your mechanical manufacturing engineer regarding your recent hospital stay, cardiac procedure and change in medications; namely your new aspirin and plavix. Please follow up with your primary care physician in 1-2 weeks. Do not lift more than 10 pounds for at leat 10 days. Do not hesitate to call emergency services or your primary care physician if you experience any of the following. -High unrelenting fevers. -Uncontrolled vomiting. -Severe hypertension. - Bleeding from cardiac cath site in right thigh. -Syncope or loss of consciousness. -Chest pain or severe shortness of breath. Follow Up: Weeks Cardiology Follow-up Provider: 1 week Report or call your Doctor REPORT TO YOUR DOCTOR OR SEEK MEDICAL ATTENTION: *Shortness of breath or have more difficulty breathing. *Swelling of your feet, ankles, hands or abdomen. *Feeling tired with normal activity or experiencing dizziness or fainting. *Trouble sleeping or waking up feeling short of breath or coughing. *Chest pain or pressure. *Weight gain of 3-5 pounds over 2-3 days. *Inability to take medications or follow treatment plan Heart Attach warning signs HEART ATTACK WARNING SIGNS * Chest discomfort. *Discomfort or pain in one or both arms, back, neck, jaw or stomach. *Shortness of breath. *Breaking out in a cold sweat, nausea, or lightheadedness. If you're having heart attack warning signs: CALL . DON'T WAIT MORE THAN A FEW MINUTES - 5 MINUTES AT MOST - TO CALL . Merrill Esteves MD 01/16/17 0726: CHF Discharge Instructions Attending Statement Patient seen and examined with house staff. Agree with all attached documentation. NIC GALVAN DO Jan 08, 2017 12:16 Merrill Esteves MD Jan 16, 2017 07:26
[2017-01-08] MEDS ORDERED: LISI10TA PO (12:40)
[2017-01-08] MEDS ORDERED: SIMV40TA5 PO (12:40)
[2017-01-08] MEDS ORDERED: CLOP75TA28 PO (12:40)
[2017-01-08] MEDS ORDERED: ASPI-973 PO (12:40)
[2017-01-08] MEDS ORDERED: METO25TA6 PO (12:40)
--- NOTE | 2017-01-08 13:23 | NUR ---
Social Work Note: Initial Assessment/Discharge Data& Assessment: EMR reviewed.SW met with pt and pt sister at bedside to discuss discharge planning, SW role explained. Mariola Kraus is a 89 year old female admitted on 01/06/2017 for chest pain. Pt has [employer] Medicare and [employer] life supplement. Pt sees Cece Ro MD for primary care. Pt lives in [facility]) alone in a two story home. Pt is independent at baseline and does not require any DME. Pt has never had HH or SNF hx. Pt does not have LTC insurance or VA service connection. Pt has DPOA paperwork completed, SW requested a copy when possible for her chart. Per MD pt is medically improved and ready for discharge. Pt is at baseline mobility. Pt sister transporting pt home today. Pt and pt sister deny any other needs. No other discharge needs identified. Plan: Per MD pt is medically ready to discharge home via POV. Pt sister transporting pt home today. Pt and pt sister deny any other needs. No other discharge needs identified. CHEPE Hinkle Addendum: 01/08/17 at 1337 by JASMIN TRISTAN Amended: Links added.
--- NOTE | 2017-01-08 14:06 | NUR ---
Discharge Pt's groin site unchanged from this am's assessment, Pt discharged to home with friend at ~1355. Pt given discharge educational materials on all new prescriptions, stent ID card, angioplasty/stent booklet, and [place] booklet. Pt's IV access D/C'd and intact. Pt instructed to resume warfarin dose this evening and monitor as before. Pt instructed to f/u with PCP, appointment made with Dr. Ro for 01/15/17 at 1040, phone number supplied. Pt instructed to ask PCP for referral to Dr. King for appointment in 1 month and for cardiac rehab 3X per week, phone numbers supplied. Pt verbalized understanding of all discharge instructions. All belongings accompanied Pt at time of discharge.
--- NOTE | 2017-01-08 14:11 | NUR ---
PRANAY signed CHEPE Hinkle
--- NOTE | 2017-01-08 19:34 | PROG NOTE ---
[address] [address] PROGRESS NOTE PATIENT: PANCHO KEANE : 1924 MR#: [id number] ADMIT: 01/06/2017 JOB ID: [id number] CARDIOLOGY PROGRESS NOTE--FOLLOW-UP INPATIENT CONSULTATION: DATE OF EVALUATION: Sunday, January 08, 2017. CONSULTING PHYSICIAN: Cardiology--Blayne Copeland MD PROBLEMS: ACS (acute coronary syndrome): 1. NSTEMI. 2. Single-vessel CAD of proximal LAD. 3. Urgent PCI of proximal LAD with Xience IVETT 2.75 mm diameter. SUBJECTIVE: Hospital Day-3. I saw the patient on cardiology rounds today along with the primary hospitalist team. We had an opportunity to talk at length with the Hospitalist team. HOSPITAL COURSE: She has done well since her PCI yesterday, without recurrent chest pain or other symptoms. The access site at her right femoral has been intact. She has been out of bed a bit without difficulty. She was well hydrated post catheterization and made good urine post contrast load. Overall she feels improved, well, and ready to go home. OBJECTIVE: Vital signs stable. I and O: Good urine output. Right lower extremity: The team examined this. There is minor ecchymosis. No hematoma. No bruit or pulsatile mass. Pulses intact and distal perfusion is fully intact despite poorly palpable distal pulses. Overall very satisfactory. LABORATORY: Intact, including creatinine. Electrocardiogram: The ECG this morning, post PCI, is unchanged with anterior T-wave inversion as previously, consistent with her LAD territory ischemia and infarction. Echocardiogram: I noted the report of the echocardiogram on admission showed mild to moderate reduction of global systolic function, with EF estimated 40% to 45%, and severe hypokinesis with wall motion defect of apical septal, anteroseptal, and anterior wals. ASSESSMENT AND RECOMMENDATION: 1. Coronary artery disease (CAD) with acute coronary syndrome (ACS) including NSTEMI treated with PCI of proximal LAD culprit: Overall she is doing very well and appears stable for discharge today. We had the time to talk with her in detail including: We discussed the importance of close follow-up with a primary physician; and with Cardiology, and to have immediate care for any further symptoms. We have discussed stents, including possible need for further procedures, and the critical importance of mandatory dual antiplatelet therapy, and not to miss Plavix for any reason without immediate Cardiology consultation. We discussed her medical regimen including importantly aspirin, Plavix, statin, and beta-jhoana. We discussed the important recommendation for a rehab program if possible, and an activity prescription including progressive resumption of normal activities as tolerated, with progressive moderate common sense, symptom limited activity. 2. Anemia: Note also she was anemic with hemoglobin 9.8 on admission, which seems likely to be chronic anemia. Her hemoglobin dropped to 8.7, which we felt was most likely dilutional, and from hospital phlebotomy. We considered bleeding, but clinically there is no evidence of bleeding related to her access site. No retroperitoneal bleeding or other. We recommended close follow-up. (Note normal indices.) NELLYD
--- NOTE | 2017-01-19 18:12 | PCM.DC.MED ---
Discharge Summary Date of Service Jan 19, 2017 Dates of Hospitalization Date of Hospital Admission Jan 06, 2017 at 11:56 Date of Discharge: Jan 08, 2017 Providers: Admitting Physician: Ed Johnston MD Primary Care Physician: Cece Ro MD Attending Physician: Ed Johnston MD Diagnosis at Time of Discharge Diagnosis at Time of Discharge 1. [id number] myocardial infarction, present on admission, Stable. 2. history of paroxysmal atrial flutte, present on admission, stable 3. Hypertension present on admission. Stable. 4. Glaucoma with recent surgery, right eye, present on admission, stable 5. Acute Heart Failure with reduced ejection fraction. present on admission. Stable. 6. Cardiac catheterization with drug eluding Stent in the LAD. POD 1. Stable. Brief History Patient had her heart chatheterization today and that showed a 99% proximal LAD stenosis. She proceeded with drug eluting stent and subsequent angiographic results were excellent. The rest of her coronaries showed no evidence of significant CAD. She has been transferred to [facility] in stable condition. She has done well since her PCI yesterday, without recurrent chest pain or other symptoms. Her access site at her right femoral has been intact. She has been out of bed a bit without difficulty. She was well hydrated post catheterization and made good urine post contrast load. Overall she feels improved, well, and ready to go home. Hospital Course 1. [id number] myocardial infarction, present on admission, active -cardiac cath with stent to LAD 01-07-16, will follow with cardiology -lipitor 40, asa 81, plavix 75, metoprolol 12.5 tid 2. history of paroxysmal atrial flutte, present on admission, stable -office note 10-02-16, pcp Dr. Ro, patient has history of a-flutter, ie reason for Coumadin -resume Coumadin when OK with cardiology -metoprolol 12.5 q 8 hours 3. Hypertension present on admission. Stable. -continue lisinopril 10, metoprolol 12.5 tid 4. Glaucoma with recent surgery, right eye, present on admission, stable -Will continue with patient's five eye drops. She has them here in the hospital and she can use her own if we do not have them currently in our pharmacy. Exam Exam eyes; ronda eom intact enmt; mouth clear, no JVD cv; S1S2 present, no sig murmur resp; clear anteriorly to auscultation gi; soft, benign, non-tender skin; no rashes neuro; cn 2-12 intact, no gross motor or sensory defects Test 01/06/17 14:22 01/07/17 05:40 01/07/17 14:23 01/07/17 17:15 Total Creatine Kinase 192U/L (21-215) Creatine Kinase MB 14.8ng/mL (0.0-5.3) Creatine Kinase MB % 7.7% (0.0-5.0) Pro-B-Type Natriuretic Peptide 3034pg/mL (0-738) Thyroid Stimulating Hormone (TSH) 2.470uIU/mL (0.450-4.500) Magnesium Level 1.8mg/dL (1.6-2.6) Iron Level 58ug/dL (35-150) Total Iron Binding Capacity 402ug/dL (250-450) Percent Iron Saturation 14%sat (15-50) Unsaturated Iron Binding 344.1ug/dL Triglycerides Level 190mg/dL (0-149) Cholesterol Level 184mg/dL (100-199) LDL Cholesterol, Calculated 90.000mg/dL (0-99) VLDL Cholesterol 38.000mg/dL HDL Cholesterol 56mg/dL (>39) Cholesterol/HDL Ratio 3.29 (0.0-4.4) Activated Partial Thromboplast Time 70.0sec (22.8-33.0) Troponin T 0.219ug/L (0.0-0.011) Test 01/08/17 03:00 White Blood Count 5.7th/mm3 (3.8-10.1) Red Blood Count 3.13mil/mm3 (3.90-5.20) Hemoglobin 8.7g/dL (12.0-15.6) Hematocrit 27.6% (35.0-46.0) Mean Corpuscular Volume 88.2fL (81-100) Mean Corpuscular Hemoglobin 27.8pg (27.0-35.0) Mean Corpuscular Hemoglobin Concent 31.5% (32.0-37.0) Red Cell Distribution Width 15.2% (12.3-15.4) Platelet Count 135bil/L (150-400) Neutrophils (%) (Auto) 73.5% (40-74) Lymphocytes (%) (Auto) 11.0% (14-46) Monocytes (%) (Auto) 10.6% (4-12) Eosinophils (%) (Auto) 4.2% (0-5) Basophils (%) (Auto) 0.5% (0-3) Prothrombin Time 11.7sec (8.1-12.5) Prothromb Time International Ratio 1.09ratio Sodium Level 138mEq/L (134-144) Potassium Level 3.9mEq/L (3.5-5.2) Chloride Level 105mEq/L (97-108) Carbon Dioxide Level 22mmol/L (18-29) Blood Urea Nitrogen 12mg/dL (8-27) Creatinine 0.57mg/dL (0.57-1.00) Estimat Glomerular Filtration Rate 143mL/min (>59) Glucose Level 103mg/dL (60-99) Calcium Level 8.9mg/dL (8.5-10.1) Total Bilirubin 0.3mg/dL (0.0-1.2) Aspartate Amino Transf (AST/SGOT) 29U/L (0-50) Alanine Aminotransferase (ALT/SGPT) 11U/L (0-32) Alkaline Phosphatase 54U/L (25-165) Total Protein 5.1g/dL (6.4-8.4) Albumin 3.2g/dL (3.4-5.0) Discharge Medications Discharge Medications Aspirin (Aspirin) 81 Mg Tablet 81 MG PO DAILY Prescribed by: NIC GALVAN DO Brimonidine Tartrate (Alphagan P) 5 Ml Drops 1 DROP LEFT_EYE TID (Reported) Clopidogrel (Clopidogrel) 75 Mg Tablet 75 MG PO DAILY Prescribed by: NIC GALVAN DO Difluprednate (Durezol) 5 Ml Drops 1 DROP RIGHT_EYE QID (Reported) Dorzolamide (Dorzolamide) 10 Ml Drops 1 DROP LEFT_EAR TID (Reported) Latanoprost (Latanoprost) 2.5 Ml Drops 1 DROP LEFT_EYE HS (Reported) Lisinopril (Lisinopril) 10 Mg Tablet 10 MG PO DAILY Prescribed by: NIC GALVAN DO Metoprolol Tartrate (Metoprolol Tartrate) 25 Mg Tablet 12.5 MG PO TID Prescribed by: NIC GALVAN DO Ofloxacin (Ofloxacin) 5 Ml Drops 1 DROP RIGHT_EYE QID (Reported) Simvastatin (Simvastatin) 40 Mg Tablet 40 MG PO HS Prescribed by: NIC GALVAN DO Warfarin Sodium (Warfarin Sodium) 2.5 Mg Tablet 2.5 MG PO DAILYWD (Reported) Followup Plan Disposition: Home Follow-up plan Please follow up with Dr. King in 1 months time. - Please schedule cardiac rehab, 3x per week. Dr. King's office should help with that plan. Please call your overcaster regarding your recent hospital stay, cardiac procedure and change in medications; namely your new aspirin and plavix. Please follow up with your primary care physician in 1-2 weeks. Do not lift more than 10 pounds for at leat 10 days. Do not hesitate to call emergency services or your primary care physician if you experience any of the following. -High unrelenting fevers. -Uncontrolled vomiting. -Severe hypertension. - Bleeding from cardiac cath site in right thigh. -Syncope or loss of consciousness. -Chest pain or severe shortness of breath. Time spent 50 minutes Attending Statement Patient was seen and examined with house staff. Agree with all attached documentation. NIC GALVAN DO Jan 19, 2017 18:10 Merrill Esteves MD Jan 22, 2017 07:10
== END 2017-01-08 14:23 | disposition home or self-care (01) | DRG 246 ==
LOC: OBSVTOIN 11:56 → MPC 11:56 → PCC 01-07 17:38
PROVIDERS: ADMIT Hospitalist; ATTEND Hospitalist
PROC: 027034Z Dilation of Coronary Artery, One Artery with Drug-eluting Intraluminal Device, Percutaneous Approach (ICD-10-PCS; principal; 2017-01-07)
PROC: 4A023N7 Measurement of Cardiac Sampling and Pressure, Left Heart, Percutaneous Approach (ICD-10-PCS; 2017-01-07)
PROC: B2111ZZ Fluoroscopy of Multiple Coronary Arteries using Low Osmolar Contrast (ICD-10-PCS; 2017-01-07)
DX: I21.4 Non-ST elevation (NSTEMI) myocardial infarction (principal); I50.21 Acute systolic (congestive) heart failure; I48.92 Unspecified atrial flutter; I10 Essential (primary) hypertension; Z87.891 Personal history of nicotine dependence; Z79.01 Long term (current) use of anticoagulants; Z86.73 Personal history of transient ischemic attack (TIA), and cerebral infarction without residual deficits; H40.9 Unspecified glaucoma; I25.10 Atherosclerotic heart disease of native coronary artery without angina pectoris